=== PATIENT | female | born 1975 | race Two or more races ===

== ENCOUNTER 2019-06-07 17:37 | Inpatient (IN) | payer BC, OTHER ==
[~2019-06-07] VITALS: Ht 152.4 cm; Wt 86.5 kg
[2019-06-07 18:05] LABS: Hematocrit 34.1 % (36.0-46.0); Nucleated Red Blood Cells % 0.1 %; White Blood Cell 5.7 10^3/uL (4.4-10.8)
[2019-06-07 18:06] LABS: Basophils # (auto) 0 10 ^3/uL (0-0.2); Eosinophils # (auto) 0.3 10 ^3/uL (0-0.8); Eosinophils % (auto) 4.7 % (0.0-7.0); Hemoglobin 10.6 g/dL (12.2-16.2); Lymphocytes # (auto) 1.5 10 ^3/uL (0.4-5.4); Lymphocytes % (auto) 25.3 % (10.0-50.0); Mean Corpuscular Hemoglobin 23.2 pg (28.0-32.0); Mean Corpuscular Hgb Conc. 31.1 g/dL (32.0-36.0); Mean Corpuscular Volume 74.5 fL (80.0-100.0); Monocytes # (auto) 0.5 10 ^3/uL (0-1.3); Monocytes % (auto) 8.7 % (0.0-12.0); Neutrophils # (auto) 3.5 10 ^3/uL (1.6-8.6); Neutrophils % (auto) 61.3 % (37.0-80.0); Platelet Count (auto) 254 10^3/uL (140-450); Red Blood Cells 4.58 10^6/uL (4.0-5.20)
[2019-06-07 18:19] LABS: Albumin 3.7 g/dL (3.4-5.0); Anion Gap 10 (5-15); Blood Urea Nitrogen 6 mg/dL (7-18); Calcium 8.5 mg/dL (8.5-10.1); Carbon Dioxide 24 mmol/L (21-32); Chloride 107 mmol/L (98-107); Glucose 95 mg/dL (74-106); Potassium 3.3 mmol/L (3.5-5.1); Sodium 141 mmol/L (136-145)
[2019-06-07 18:24] LABS: Alanine Aminotransferase 19 U/L (13-56); Alkaline Phosphatase 94 U/L (45-117); Aspartate Aminotransferase 16 U/L (15-37); BUN/Creatinine Ratio 8.1; Bilirubin, Total 0.6 mg/dL (0.2-1.0); GFR African American 110 mL/min; GFR Non-African American 91 mL/min; Total Protein 7.6 g/dL (6.4-8.2)
[2019-06-07] MEDS ORDERED: ASPirin 81 mg TAB PO ONE (19:00)
[2019-06-07 19:01] LABS: Urine WBC None Seen /hpf (0 - 5)
[2019-06-07 19:24] LABS: Urine Bacteria FEW /hpf (None Seen); Urine Blood Negative /uL (Negative); Urine Mucus FEW (None Seen); Urine Specific Gravity 1.008 (1.001-1.035)
[2019-06-07 19:39] LABS: INR 1.01 (0.9-1.15); Partial Thromboplastin Time 24.1 sec (23.64-32.05)
[2019-06-07] MEDS ORDERED: POTASSIUM CHL 20 Meq TABLET PO ONE ×2 (21:00→22:00)
[2019-06-07] MEDS ORDERED: KETOROLAC TROMETH 15 mg/ml 1ML VL IV PRN (21:45)
[2019-06-07] MEDS ORDERED: NITROGLYCERIN 0.4 MG SL TAB SL PRN (21:45)
[2019-06-07] MEDS ORDERED: MORPHINE SULF INJ 2 MG/ML SYRINGE 1ML IV PRN (21:45)
[2019-06-07] MEDS ORDERED: ACETAMINOPHEN 325 MG TAB PO PRN (21:45)
[2019-06-07] MEDS ORDERED: ONDANSETRON HCL 4 MG/2 ML VIAL IV PRN (21:45)
[2019-06-07] MEDS ORDERED: ATORVASTATIN 20 MG TAB PO SCH (22:00)
[2019-06-07] MEDS: CARVEDILOL 3.125 MG TAB PO SCH (22:17)
[2019-06-07 23:05] VITALS: BP 139/97
[2019-06-08 05:29] LABS: Basophils # (auto) 0.1 10 ^3/uL (0-0.2); Eosinophils # (auto) 0.1 10 ^3/uL (0-0.8); Eosinophils % (auto) 1.5 % (0.0-7.0); Hemoglobin 9.9 g/dL (12.2-16.2); Monocytes # (auto) 0.5 10 ^3/uL (0-1.3); Nucleated Red Blood Cells % 0.1 %
[2019-06-08 05:31] LABS: Basophils % (auto) 1.2 % (0.0-2.0); Hematocrit 31.5 % (36.0-46.0); Lymphocytes % (auto) 42.2 % (10.0-50.0); Mean Corpuscular Hemoglobin 23.3 pg (28.0-32.0); Mean Corpuscular Hgb Conc. 31.4 g/dL (32.0-36.0); Mean Corpuscular Volume 74.1 fL (80.0-100.0); Monocytes % (auto) 10.4 % (0.0-12.0); Neutrophils # (auto) 2.1 10 ^3/uL (1.6-8.6); Neutrophils % (auto) 44.7 % (37.0-80.0); Platelet Count (auto) 228 10^3/uL (140-450); Red Blood Cells 4.25 10^6/uL (4.0-5.20); Red Cell Distribution Width 15.9 % (11.8-14.3); White Blood Cell 4.7 10^3/uL (4.4-10.8)
[2019-06-08 05:42] LABS: Calcium 7.9 mg/dL (8.5-10.1); Potassium 3.9 mmol/L (3.5-5.1)
[2019-06-08 05:44] LABS: BUN/Creatinine Ratio 6.3
[2019-06-08 06:00] VITALS: BP 129/81
[2019-06-08 08:00] VITALS: BP_SYST 119; BP_SYST 139; BP_DIAS 81; BP_DIAS 97
[2019-06-08] MEDS: DOCUSATE SOD 100 MG CAP PO SCH (09:28)
[2019-06-08] MEDS: CLOPIDOGREL BISULFATE 75 MG TAB PO SCH (09:29)
[2019-06-08] MEDS: LISINOPRIL 5 MG TAB PO SCH (09:31)
[2019-06-08] MEDS: ASPirin 81 mg TAB PO SCH (09:31)
[2019-06-08] MEDS: CARVEDILOL 3.125 MG TAB PO SCH ×3 (10:00→22:22)
[2019-06-08 12:00] VITALS: BP 129/87
[2019-06-08 17:00] VITALS: BP 120/78
[2019-06-08 22:07] VITALS: BP 103/75
[2019-06-08] MEDS: ATORVASTATIN 20 MG TAB PO SCH (22:24)
[2019-06-09 05:03] VITALS: BP 113/63
[2019-06-09 08:00] VITALS: BP 103/73
[2019-06-09] MEDS: CARVEDILOL 3.125 MG TAB PO SCH ×2 (09:33→21:45)
[2019-06-09] MEDS: DOCUSATE SOD 100 MG CAP PO SCH (09:33)
[2019-06-09] MEDS: ASPirin 81 mg TAB PO SCH (09:33)
[2019-06-09] MEDS: CLOPIDOGREL BISULFATE 75 MG TAB PO SCH (09:34)
[2019-06-09] MEDS: LISINOPRIL 5 MG TAB PO SCH (09:34)
[2019-06-09] MEDS ORDERED: ADENOSINE 74 MG in GIVE UN-DILUTED 0 ML IV STA (11:49)
[2019-06-09 12:11] VITALS: BP 135/87
[2019-06-09 16:54] VITALS: BP 119/73
[2019-06-09] MEDS: FERROUS SULFATE 325 MG TAB PO SCH (17:58)
[2019-06-09 20:00] VITALS: BP 113/66
[2019-06-09] MEDS: ATORVASTATIN 20 MG TAB PO SCH (21:45)
[2019-06-09 22:00] VITALS: BP 113/66
[2019-06-10 04:54] VITALS: BP 136/82
[2019-06-10 08:59] VITALS: BP 115/71
[2019-06-10] MEDS: CARVEDILOL 3.125 MG TAB PO SCH (10:00)
[2019-06-10] MEDS: LISINOPRIL 5 MG TAB PO SCH (10:00)
[2019-06-10] MEDS: DOCUSATE SOD 100 MG CAP PO SCH (10:00)
[2019-06-10] MEDS: FERROUS SULFATE 325 MG TAB PO SCH (10:09)
[2019-06-10] MEDS: ASPirin 81 mg TAB PO SCH (10:10)
[2019-06-10] MEDS: CLOPIDOGREL BISULFATE 75 MG TAB PO SCH (10:10)
== END 2019-06-10 11:45 | disposition home or self-care (01) | DRG 313 ==
LOC: ER 17:37 → TELE 17:38 → TELE-CENTR 23:05
PROVIDERS: ADMIT Hospitalist; ATTEND Family Medicine
DX: R07.89 Other chest pain (principal); I10 Essential (primary) hypertension; E87.6 Hypokalemia; E78.00 Pure hypercholesterolemia, unspecified; D53.9 Nutritional anemia, unspecified; E78.5 Hyperlipidemia, unspecified; E66.9 Obesity, unspecified; Z80.3 Family history of malignant neoplasm of breast; Z83.3 Family history of diabetes mellitus; Z82.49 Family history of ischemic heart disease and other diseases of the circulatory system; Z79.899 Other long term (current) drug therapy
CPT/HCPCS: 36415; 70450; 71045; 78452; 80048; 80053; 80061; 81001; 81025; 83735; 84443; 84484; 85025; 85379; 85610; 85730; 93005; 93017; 93306; G0378; J0153